=== PATIENT | female | born 1980 | race Caucasian/White ===

== ENCOUNTER 2019-09-18 10:59 | Day surgery (SDC) | payer OTHER, SELFPAY ==
[2019-09-18] VITALS (10 sets, daily range): BP systolic 101–110; BP diastolic 50–68; PULSE 66–83; RESP 16–65; TEMP 36.7–37.2; O2SAT 98–100; BMI 22.9
--- NOTE | 2019-09-18 | HERN_PTH ---
PATIENT: MAGDALENE JONAS LOC: [facility] [place] U#:[id number] AGE/SX: 39/F ROOM: RE09/18/[address]: Dr. Eliazar Alberto MD : 1980 BED: DIS: 09/18/2019 SPEC #: [id number] RECD: 09/19/19 08:39 STATUS: AROLDO KAREN #: [id number] KARAN: 09/18/19 00:[address]: Eliazar Alberto DEPT: SURGICAL PATHOLOGY RECD BY: Anurag Guerrero ENTERED: 09/19/19 08:39 SP TYPE: Hernia OTHR DR: Dr. Simon Yang MD Tissues: HERNIA Procedures: Surgery Specimen Level II HEADER OPERATION: Incarcerated hernia, umbilical repair with mesh PRE-OP DIAGNOSIS: Incarcerated umbilical hernia TISSUE SUBMITTED: Umbilical hernia sac and contents MICROSCOPIC DIAGNOSIS Umbilical hernia sac and contents: Pieces of fibroadipose and fibroconnective tissue with reactive changes, clinically umbilical hernia sac and contents. DI:jayden 09/22/19 MICROSCOPIC DESCRIPTION Slides are reviewed. GROSS DESCRIPTION Received in fixative is one container labeled with the patient's name and designated umbilical hernia sac and contents. The specimen consists of four variable sized pieces of adipose tissue mixed with congested soft tissue that in aggregate measure 3 x 2.5 x 1 cm. Sections do not reveal any mass lesion. An Employee Sponsor Or Advocate And sections are submitted in one cassette. / DI:jayden 09/19/19 TC:5 CPT: 22310
[2019-09-18] MEDS: Lactated Ringers 1,000 ML 100 ML IV ×2 (11:44→16:25)
--- NOTE | 2019-09-18 12:02 | HP.PCM_ITS ---
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 Eliazar Alberto MD) Incarcerated umbilical hernia (Acute) Anxiety and depression (Acute) Surgical History (Updated 09/17/19 @ 15:29 by Paola Goncalves) History of tonsillectomy (Acute ~2010) History of wisdom tooth extraction (Acute ~2000) Family History (Updated 09/17/19 @ 15:29 by Paola Goncalves) Father Osteoarthritis Social History (Updated 09/17/19 @ 15:[address] Eliazar Alberto MD) Smoking Status: Never smoker HPI HPI HPI: MAGDALENE JONAS, is a 39 F who presents to the office today for surgical consultation regarding a suspected incarcerated umbilical hernia. The patient is the daughter of Dr. Sacha Chow. 2 days ago while lying on her belly she noted an acute pain at the umbilicus. She has not had any previous surgery there. She does have 2 children and does a reasonable amount of lifting. She works as a county director. She denies nausea or vomiting. She last ate several hours ago. There is been no change in bowel habits. She has had no trauma. She notes that she is tender immediately at the umbilicus and superficially very tender HPI HPI HPI: MAGDALENE JONAS, is a 39 F who presents to the office today for ROS General General: No weight change, appetite, fatigue, colon cancer, breast cancer or weakness HEENT HEENT: No difficulty swallowing, eye injury, eye surgery, swollen glands or hoarseness Endo Endocrine: No thyroid disease, diabetes mellitus, thyroid cancer, Hair loss, heat intolerance or cold intolerance Musc Musculoskeletal: No back problems, arthritis, rheumatoid arthritis, gout or joint pain Cardio Cardiovascular: No murmur, pacemaker, heart disease, atrial fibrillation, high blood pressure, heart attack, heart stent, palpitations, shortness of breat with exertion or chest pain Psych Psychiatric: Yes depression and anxiety; no hearing voices Resp Respiratory: No shortness of breath, No sleep apnea, No cough, No COPD, No asthma, No emphysema, No wheezing Gastro Gastrointestinal: No abdominal pain, No nausea or vomiting, No diarrhea, No constipation, No blood in stool, No acid reflux, No hemorrhoids, No ulcers, No gallbladder problem, No black,tarry stools Javier Hematologic: No blood thinners, No blood disorders, No bleeding, No anemia, No blood clots Neuro Neurologic: No weakness Exam Const General: cooperative, healthy appearing, comfortable, no acute distress Nutritional Appearance: average body habitus Orientation: alert, awake, oriented x3 HENMT Head: normal to inspection Chest Chest palpation & inspection: normal inspection of the chest Resp Effort & Inspection: normal respiratory effort Auscultation: clear to auscultation bilaterally Cardio Rate: regular rate Rhythm: regular rhythm Heart Sounds: no murmurs GI Palpation: soft, no hepatosplenomegaly Auscultation: normal bowel sounds Other: Umbilicus visually appears normal but at the very base there is a slight fullness and exquisite tenderness. Not reducible. No erythema. Neuro Cognition: normal cognition Extrem General: no calf tenderness Psych Affect: normal affect Assessment & Plan Problems 1. Incarcerated umbilical hernia K42.0 Plan 39-year-old female with a incarcerated umbilical hernia. The defect is likely quite small. I have proposed a small curvilinear incision at the umbilicus. Likely anticipate a suture repair with a small onlay mesh. I have discussed technique, benefit, risk, alternatives. The patient has been made aware of Covid-19 pandemic. She is aware that the [facility] is reporting a low local incidence. I do not believe that there is any bowel involvement. The skin appears to be intact and not seeing any erythema or signs of local infection. I believe that it would be reasonable to obtain the appropriate COVID 19 testing today and then proceed with outpatient surgery tomorrow. The patient has had an opportunity to ask and have questions answered. We will schedule and proceed at her discretion. Cc: Dr. Simon Alberto M.D., F.A.C.S. Coding Level of Care Code Off vis,new,level 2 Diagnoses Incarcerated umbilical hernia K42.0 09/17/19 1552 <Electronically signed by Eliazar farah MD> Date _ Eliazar Alberto MD I have re-examined the patient. There are no clinical changes since date of exam. Procedure Criteria Procedure Type: Elective COVID Risk Discussion: The surgeon/proceduralist and patient have discussed in detail the risk of exposure to and/or potential harm posed by the COVID-19 virus with having a surgery/procedure at this time versus the risk of delaying the surgery/procedure. It is not possible to know either the risk of delaying the surgery or procedure or chance of getting an infection with perfect accuracy, but a joint decision was made between the patient and the surgeon/proceduralist to proceed at this time with the scheduled surgery/procedure as indicated on the consent form.
--- NOTE | 2019-09-18 12:11 | PCM.DC.GS ---
Discharge Diet: Light diet - advance as tolerated - if you have questions about your diet instructions, please talk to you doctor. Discharge Activity: May Not Drive - for 3-5 days or while taking narcotic pain medicine. May shower in (days): 1 Lifting Restrictions: 10 pounds Call your doctor if your incision/area has: Continuous Slow Oozing, Sudden Increased Bleeding, Increased Pain/ Swelling, Increased Redness, Foul Smelling Discharge Call your doctor if you observe: Fever of 101 or Higher Suture Line Care: Avoid Pulling/Pushing, Avoid Pinching/Bending Additional Dressing/Incision Instructions:: Change or remove dressing in 3-4 days. Leave steri-strips or glue in place for 1 week. Allergies/Adverse Reactions: Allergies No Known Allergies Allergy (Verified 09/18/19 11:28) Medications to take at Discharge cetirizine 10 mg tablet 10 mg PO DAILY 09/17/19 sertraline 50 mg tablet 50 mg PO DAILY 09/17/19 Orders to be completed after discharge: ,Urine Time Frame: 09/18/19, Facility: [facility], Location: [facility] Primary Care Physician: Jono Yang MD [Primary Care Provider] - Test Results: Test results from this visit will be discussed in further detail at your follow-up appointment, if applicable. Please Follow Up With: Eliazar Alberto MD - [phone] When: Call to make an appointment to be seen in about 10 days.
[2019-09-18 12:31] LABS: Internal QC Validated? YES +Cl - CLEAR BKGD; Pregnancy, Urine Negative Negative
[2019-09-18] MEDS: Cefazolin 2 GM in 0.9% Normal Saline 100 ML IV (12:42)
[2019-09-18] MEDS: Bupivacaine Mpf 0.5% 30 ML VIAL (12:57)
--- NOTE | 2019-09-18 13:39 | PCM.OPRPT ---
Problem List (1) Incarcerated umbilical hernia Status: Acute Report of Operation Date of Procedure: 09/18/19 Pre-Operative Diagnosis: Incarcerated umbilical hernia Post-Operative Diagnosis: Same Surgery/Procedure Performed:: Incarcerated umbilical herniorrhaphy with placement of 4.[address] hernia patch. Reference #[id number] lot [id number]. Expiry date 05/09/2021 Description of Surgical Findings:: Timeout and informed consent was obtained. 39-year-old female was taken to the operating placed supine on the table underwent general endotracheal intubation anesthesia. The abdomen was sterilely prepped and draped. Ancef 2 g were given intravenously. A curvilinear incision was made in the inferior portion of the umbilicus. Sharp and blunt dissection was used to identify an incarcerated umbilical hernia with preperitoneal fat. There was little amount of gelatinous necrotic tissue adjacent to the posterior aspect of umbilical skin. But the vast majority of the fatty tissue was viable and unremarkable. I dissected free the preperitoneal fat and trimmed excess of the hernia sac and contents submitting that a specimen. The defect measured approximately a centimeter diameter. The abdominal fascia is somewhat lax. I elected to place a 4.3 cm ventralex. That was inserted into the umbilicus and allowed to unfold. Great care was taken to assure that it open to completely. It had been moistened with saline to activate the surface. The tails were secured in place with interrupted 0 Nurolon. The fascia was approximated transversely with the same. Skin edges approximated with interrupted 4-0 Monocryl and the umbilical skin was tacked down with the same. Surgical glue was used to approximate the skin. Cotton ball Telfa OpSite dressing applied. Sponge and instrument and needle counts were reported to the surgeon to be correct. Specimen is hernia sac and contents. Drains none. Blood loss minimal. She was taken to the recovery room in satisfactory condition without apparent complication Eliazar Alberto M.D., F.A.C.S. Type of Anesthesia:: General Anesthesiologist: Cristi Edmondson
[2019-09-18] MEDS: Acetaminophen 325 MG Tablet 650 MG PO (14:51)
== END 2019-09-18 17:40 | disposition home or self-care (01) ==
LOC: SDC 11:03 → AC 11:05
PROVIDERS: Anesthesiology; PCP Family Medicine; Referring Provider Surgery; Visit Provider Surgery
PROC: (CPT 49587; principal; 2019-09-18 13:00)
DX: K42.0 Umbilical hernia with obstruction, without gangrene (principal); Z11.59 Encounter for screening for other viral diseases; F41.9 Anxiety disorder, unspecified; F32.9 Major depressive disorder, single episode, unspecified; Z79.899 Other long term (current) drug therapy
CPT/HCPCS: 49587; 81025; 87635; 88302; J7120; C1781; J2405; U0003

== ENCOUNTER → 2020-09-01 10:56 | Outpatient (CLI) | payer BC, SELFPAY ==
[2019-09-18 11:29] VITALS: BMI 22.9
[2020-09-01 13:14] LABS: Vitamin D,25 Hydroxy 33.4 ng/mL
[2020-09-01 13:24] LABS: Anion Gap 5 (5-15); BUN 12 mg/dL (7-18); BUN/Creat Ratio 19.3 RATIO (10-20); Chloride 106 mmol/L (98-107); Cholesterol 201 mg/dL (200); Creatinine, Serum 0.62 mg/dL (0.55-1.02); EST Glomerular Filtration Rate 114 mL/min (>60); Est Glom Filt Rate - Afr Amer 138 mL/min (>60); Glucose 78 mg/dL (74-106); High Density Lipoprotein 56 mg/dL; Sodium Level 138 mmol/L (136-145); Thyroid Stim Hormone (TSH) 1.13 uIU/mL (0.358-3.74); Triglycerides 98 mg/dL; Very Low Density Lipoprotein 20 mg/dL (5-40)
== END ==
PROVIDERS: PCP Family Medicine; Referring Provider Family Medicine; Visit Provider Family Medicine
DX: F32.9 Major depressive disorder, single episode, unspecified (principal); Z13.220 Encounter for screening for lipoid disorders; Z13.21 Encounter for screening for nutritional disorder; Z13.1 Encounter for screening for diabetes mellitus
CPT/HCPCS: 36415; 80048; 80061; 82306; 84443

== ENCOUNTER → 2023-11-06 | Outpatient (CLI) | payer OTHER, SELFPAY ==
[2023-11-06 17:58] LABS: Absolute Lymphocyte Count 1.29 X10^3/uL (0.83-4.51); Absolute Neutrophil Count 4.2 X10^3/uL (2.0-7.7); Basophil# 0.05 X10^3/uL; Basophil% 0.8 % (0-1); Eosinophils% 4.7 % (0-5); Hematocrit 39.6 % (37-47); Hemoglobin 12.8 g/dL (12.0-15.0); Lymphocyte # 1.29 X10^3/ul (0.83-4.51); Lymphocyte % 20.2 % (19-41); Mean Corp Hgb Conc 32.3 g/dL (32-36); Mean Corpuscular Hgb 28.4 pg (27.0-32.0); Mean Platelet Vol. 10.9 fl (6.2-12.0); Monocyte# 0.54 X10^3/uL; Monocyte% 8.5 % (0-10); NRBC Flagged by Analyzer 0 % (0-5); Neutrophil % 65.6 % (47-70); Platelet Count 191 K/mm3 (150-450); RBC Distribution Width CV 12.6 % (11.6-14.6); RBC Distribution Width SD 41.1 fl (35.1-43.9); White Blood Count 6.4 K/mm3 (4.4-11.0)
[2023-11-06 18:06] LABS: Erythrocyte Sedimentation Rate 5 mm/hr (0-30)
[2023-11-06 18:19] LABS: ALB/GLOB Ratio 1.1 RATIO (0.9-2.4); AST(SGOT) 18 U/L (15-37); Alanine Aminotransfer ALT/SGPT 20 U/L (13-56); Albumin, Serum 3.7 g/dL (3.2-5.0); Alkaline Phosphatase 75 U/L (45-117); Anion Gap 7 (5-15); BUN 17 mg/dL (7-18); BUN/Creat Ratio 27.1 RATIO (10-20); Calcium,Total 9.1 mg/dL (8.5-10.1); Chloride 104 mmol/L (98-107); Creatinine, Serum 0.63 mg/dL (0.55-1.02); EST Glomerular Filtration Rate 111 mL/min (>60); Est Glom Filt Rate - Afr Amer 134 mL/min (>60); Free T3 2.1 pg/mL (2.18-3.98); Globulin 3.4 g/dL (2.2-4.2); Glucose 85 mg/dL (74-106); Iron 46 ug/dL (50-170); Potassium 3.7 mmol/L (3.5-5.1); Protein, Total 7.1 g/dL (6.4-8.2); Sodium Level 140 mmol/L (136-145); T4 Free Direct 0.79 ng/dL (0.76-1.46)
[2023-11-06 19:13] LABS: Vitamin B12 500 pg/mL (211-911)
== END | disposition home or self-care (01) ==
PROVIDERS: PCP Family Medicine; Referring Provider Family Medicine; Visit Provider Family Medicine
DX: R53.83 Other fatigue (principal)
CPT/HCPCS: 36415; 80053; 82306; 82533; 82607; 83540; 84439; 84443; 84481; 85025; 85652

== ENCOUNTER → 2024-02-26 | Outpatient (CLI) | payer OTHER, SELFPAY ==
[2024-02-26 15:39] LABS: Anion Gap 2 (5-15); BUN 8 mg/dL (7-18); BUN/Creat Ratio 12.3 RATIO (10-20); Calcium,Total 9.1 mg/dL (8.5-10.1); Chloride 105 mmol/L (98-107); Cholesterol 213 mg/dL (200); Creatinine, Serum 0.65 mg/dL (0.55-1.02); EST Glomerular Filtration Rate 106 mL/min (>60); Est Glom Filt Rate - Afr Amer 128 mL/min (>60); Glucose 96 mg/dL (74-106); High Density Lipoprotein 48 mg/dL; Sodium Level 138 mmol/L (136-145); Triglycerides 182 mg/dL; Very Low Density Lipoprotein 36 mg/dL (5-40)
[2024-02-28 00:54] LABS: Vitamin D,25 Hydroxy 30.5 ng/mL
== END | disposition home or self-care (01) ==
LOC: MFPLAB 11:41
PROVIDERS: PCP Family Medicine; Referring Provider Family Medicine; Visit Provider Family Medicine
DX: Z13.1 Encounter for screening for diabetes mellitus (principal); Z13.29 Encounter for screening for other suspected endocrine disorder; E55.9 Vitamin D deficiency, unspecified; Z13.220 Encounter for screening for lipoid disorders
CPT/HCPCS: 36415; 80048; 80061; 82306; 84443